=== PATIENT | female | born 1995 | race African-American/Black ===

== ENCOUNTER 2021-12-03 11:24 | Emergency (ER) | payer OTHER ==
[2021-12-03] MEDS ORDERED: KETOROLAC 30 MG/ML VIAL IVP STA (12:24)
[2021-12-03] MEDS ORDERED: DEXAMETHASONE 10 MG/ML VIAL PO STA (12:24)
[2021-12-03] MEDS ORDERED: CHERRY SYRUP 10 ML UDC PO ONE (12:24)
--- NOTE | 2021-12-03 12:27 | ED Physician Documentation ---
PD HPI CHEST PAIN - Stated complaint Stated Complaint: CHEST PX - Chief complaint Chief Complaint: Cardiac - History obtained from History obtained from: Patient - History of Present Illness Timing - onset: Today Timing - onset during: Rest Timing - duration: Hours Timing - details: Gradual onset, Still present Pain level max: 6 Pain level now: 4 Quality: Pressure, Tightness, Sharp Location: Substernal Radiation: No: Jaw, Neck, Back, Abdominal, Left upper extremity, Right upper extremity Improved by: Rest Worsened by: Exertion, Inspiration, Palpation Associated symptoms: No: Shortness of air, Diaphoresis, Nausea, Vomiting, Feeling faint / dizzy, General Weakness, Palpitations, Cough Similar symptoms before: Has not had sx before Recently seen: Clinic - Additional information Additional information: 26-year-old female presents to the emergency department today after curiously developing some pain with inspiration. She is usually quite active goes to the gym frequently and has not had chest wall pain previously she states that it hurts to take a deep breath and hurts to push on the chest. She does not recall an injury to the chest but she does admit to a sobbing episode several nights ago. She has not otherwise been ill and if she is not breathing deeply she is not uncomfortable. Review of Systems Constitutional: denies: Fever Eyes: denies: Decreased vision Ears: denies: Ear pain Nose: denies: Congestion Throat: denies: Sore throat Cardiac: reports: Chest pain / pressure. denies: Palpitations, Pedal edema, Calf pain Respiratory: denies: Dyspnea, Cough, Wheezing GI: reports: Abdominal Pain (post prandial). denies: Nausea, Vomiting, Constipation, Diarrhea : denies: Dysuria, Frequency Skin: denies: Rash Musculoskeletal: denies: Neck pain, Back pain, Extremity pain Neurologic: denies: Generalized weakness, Focal weakness, Numbness PD PAST MEDICAL HISTORY - Present Medications Home Medications: Ambulatory Orders Medication Instructions Recorded Confirmed Omeprazole Magnesium 20 mg PO DAILY 12/03/21 12/03/21 - Allergies Allergies/Adverse Reactions: Allergies Allergy/AdvReac Type Severity Reaction Status Date / Time No Known Drug Allergies Allergy Verified 12/03/21 11:31 PD ED PE NORMAL - Vitals Vital signs reviewed: Yes (normal ) - General General: Alert and oriented X 3, No acute distress, Well developed/nourished, Other (pleasant 26y/o famale in no distress ) - HEENT HEENT: Atraumatic, PERRL, EOMI - Neck Neck: Supple, no meningeal sign, No bony TTP - Cardiac Cardiac: RRR, No murmur - Respiratory Respiratory: No respiratory distress, Clear bilaterally, Other (There is pain to palpation of the anterior chest wall at the inferior costo-sternal junction. 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, No motor deficit, No sensory deficit, Normal speech Eye Opening: Spontaneous Motor: Obeys Commands Verbal: Oriented GCS Score: 15 - Psych Psych: Normal mood, Normal affect Results - Vitals Vitals: Vital Signs - 24 hr 12/03/21 12/03/21 11:28 12:01 Temperature 36.2 C L Heart Rate 60 Respiratory 16 Rate Blood Pressure 105/62 Blood Pressure 123/64 [Right] O2 Saturation 100 Oxygen O2 Source Room air - EKG (time done) 1129 Rate: Rate (enter#) (53) Rhythm: NSR Ischemia: ST elevation c/w repol (J point elevation in inferior leads ) Compare to prior EKG: Old EKG unavailable Computer interpretation: Agree with computer (the comupter did not call [facility].) - Labs Labs: Laboratory Tests 12/03/21 12/03/21 12/03/21 12:30 12:30 12:30 WBC 5.9 RBC 4.58 Hgb 13.7 Hct 40.4 MCV 88.2 MCH 29.9 MCHC 33.9 RDW 12.8 Plt Count 335 MPV 8.9 Neut # (Auto) 1.7 Lymph # (Auto) 2.9 [place] # (Auto) 0.4 Eos # (Auto) 0.8 H Baso # (Auto) 0.1 Absolute Nucleated RBC 0.00 Nucleated RBC % 0.0 Sodium 137 Potassium 4.2 Chloride 104 Carbon Dioxide 25 Anion Gap 8.0 BUN 16 Creatinine 1.0 Estimated GFR (MDRD) 81 L Glucose 87 Calcium 9.1 Total Bilirubin 0.4 AST 33 ALT 21 Alkaline Phosphatase 54 Troponin I High Sens < 2.3 L Total Protein 7.2 Albumin 3.8 Globulin 3.4 Albumin/Globulin Ratio 1.1 Lipase 31 - Rads (name of study) chest Radiology: Prelim report reviewed PD MEDICAL DECISION MAKING - ED course Complexity details: reviewed results, re-evaluated patient, considered differential, d/w patient ED course: 26-year-old female with anterior chest wall pain has costochondritis that is suspect to be related to a sobbing episode several nights ago. She is administered dexamethasone and Toradol with improvement in her pain. She is not able to take anti-inflammatory secondary to a suspected ulcer. She feels that Tylenol will likely be adequate and she would not likely take anything stronger. Departure - Departure Disposition: 01 Home, Self Care Clinical Impression: Costochondritis, acute Condition: Stable Instructions: ED Chest Pain Costochondritis Follow-Up: SHANI Kumar [Provider Group] Comments: Rosacea, today it looks like you have chest wall pain or costochondritis which is an inflammation between the ribs and the sternum. This usually has to do with excessive movement of this joint and is likely related to the sobbing episode from several days ago. The expectation with this is resolution of this pain within the week.
[2021-12-03 12:40] LABS: BASOPHILS # (AUTO) 0.1 10^3/uL (0.0-0.1); BASOPHILS % (AUTO) 0.9 %; EOSINOPHILS # (AUTO) 0.8 10^3/uL (0.0-0.7); EOSINOPHILS % (AUTO) 13.1 %; HCT - HEMATOCRIT 40.4 % (37.0-47.0); HGB - HEMOGLOBIN 13.7 g/dL (12.0-16.0); LYMPHOCYTES # (AUTO) 2.9 10^3/uL (1.5-3.5); LYMPHOCYTES % (AUTO) 49.5 %; MEAN CORPUSCULAR HEMOGLOBIN 29.9 pg (27.0-31.0); MEAN CORPUSCULAR HGB CONC 33.9 g/dL (32.0-36.0); MEAN CORPUSCULAR VOLUME 88.2 fL (81.0-99.0); MEAN PLATELET VOLUME 8.9 fL (7.9-10.8); MONOCYTES # (AUTO) 0.4 10^3/uL (0.0-1.0); MONOCYTES % (AUTO) 7.5 %; NEUTROPHILS # (AUTO) 1.7 10^3/uL (1.5-6.6); NEUTROPHILS % (AUTO) 28.8 %; PLT - PLATELET COUNT 335 10^3/uL (130-450); RED BLOOD COUNT 4.58 10^6/uL (4.20-5.40); RED CELL DISTRIBUTION WIDTH 12.8 % (12.0-15.0); WHITE BLOOD COUNT 5.9 x10^3/uL (4.8-10.8)
[2021-12-03 12:57] LABS: ALBUMIN 3.8 g/dL (3.2-5.5); ALBUMIN/GLOBULIN RATIO 1.1 (1.0-2.2); BILIRUBIN,TOTAL 0.4 mg/dL (0.2-1.0); CALCIUM 9.1 mg/dL (8.5-10.3); POTASSIUM 4.2 mmol/L (3.5-5.0); TOTAL PROTEIN 7.2 g/dL (6.7-8.2)
--- NOTE | 2021-12-03 12:57 | XRAY Report ---
PROCEDURE: Chest 1 View X-Ray INDICATIONS: Chest Pain TECHNIQUE: One view of the chest was acquired. COMPARISON: None FINDINGS: Surgical changes and devices: None. Lungs and pleura: No pleural effusions or pneumothorax. Lungs are clear. Mediastinum: Mediastinal contours appear normal. Heart size is normal. Bones and chest wall: No suspicious bony lesions. Overlying soft tissues appear unremarkable. IMPRESSION: No acute process. Reviewed by: Shania Walker MD on 12/03/2021 12:55 PM PDT Approved by: Shania Walker MD on 12/03/2021 12:55 PM PDT Station ID: [id number]
[2021-12-03 13:45] VITALS: BP 122/65
== END 2021-12-03 13:47 | disposition home or self-care (01) ==
LOC: ED 11:24
DX: M94.0 Chondrocostal junction syndrome [Tietze] (principal)
CPT/HCPCS: 36415; 71045; 80053; 83690; 84484; 85025; 93005; 96374; 99284; A9270